=== PATIENT | female | born 1930 | race Caucasian/White ===

== ENCOUNTER 2018-01-15 21:09 | Emergency (ER) | payer OTHER ==
--- NOTE | 2018-01-15 21:25 | EDPHYS ---
Physician Documentation [facility] Name: Kelsie Campos Age: 87 yrs Sex: Female : 1930 Arrival Date: 01/15/2018 Time: 21:11 Bed 24 Private MD: Ilya Milian ED Physician Alberto Ruiz HPI: 01/15 21:22 This 87 yrs old Female presents to ER via Unassigned with complaints of Fall jr8 Injury, Arm Injury. 21:22 Onset: The symptoms/episode began/occurred acutely, today. Associated injuries: The jr8 patient sustained left arm, skin avulsion. Severity of symptoms: At their worst the symptoms were mild, in the emergency department the symptoms are unchanged. The patient has not experienced similar symptoms in the past. The patient has not recently seen a physician. Historical: - Allergies: : PENICILLINS; bb - PSHx: : part of colon removed; Hysterectomy; Appendectomy; bb - Immunization history:: Adult Immunizations unknown. - Social history:: Smoking status: Patient/guardian denies using tobacco, Patient/guardian denies using alcohol, street drugs. - Ebola Screening: : No symptoms or risks identified at this time. ROS: 21:22 Eyes: Negative for injury, pain, redness, and discharge, ENT: Negative for injury, jr8 pain, and discharge, Neck: Negative for injury, pain, and swelling, Cardiovascular: Negative for chest pain, palpitations, and edema, Respiratory: Negative for shortness of breath, cough, wheezing, and pleuritic chest pain, Abdomen/GI: Negative for abdominal pain, nausea, vomiting, diarrhea, and constipation, Back: Negative for injury and pain, MS/Extremity: Negative for injury and deformity, Neuro: Negative for headache, weakness, numbness, tingling, and seizure. 21:22 Skin: Positive for avulsion, of the left arm. Exam: 21:22 Head/Face: Normocephalic, atraumatic. Eyes: Pupils equal round and reactive to light, jr8 extra-ocular motions intact. Lids and lashes normal. Conjunctiva and sclera are non-icteric and not injected. Cornea within normal limits. Periorbital areas with no swelling, redness, or edema. ENT: Nares patent. No nasal discharge, no septal abnormalities noted. Tympanic membranes are normal and external auditory canals are clear. Oropharynx with no redness, swelling, or masses, exudates, or evidence of obstruction, uvula midline. Mucous membranes moist. Neck: Trachea midline, no thyromegaly or masses palpated, and no cervical lymphadenopathy. Supple, full range of motion without nuchal rigidity, or vertebral point tenderness. No Meningismus. Chest/axilla: Normal chest wall appearance and motion. Nontender with no deformity. No lesions are appreciated. Cardiovascular: Regular rate and rhythm with a normal S1 and S2. No gallops, murmurs, or rubs. Normal PMI, no JVD. No pulse deficits. Respiratory: Lungs have equal breath sounds bilaterally, clear to auscultation and percussion. No rales, rhonchi or wheezes noted. No increased work of breathing, no retractions or nasal flaring. Abdomen/GI: Soft, non-tender, with normal bowel sounds. No distension or tympany. No guarding or rebound. No evidence of tenderness throughout. Back: No spinal tenderness. No costovertebral tenderness. Full range of motion. MS/ Extremity: Pulses equal, no cyanosis. Neurovascular intact. Full, normal range of motion. No pain upon palpation Neuro: Awake and alert, GCS 15, oriented to person, place, time, and situation. Cranial nerves II-XII grossly intact. Motor strength 5/5 in all extremities. Sensory grossly intact. Cerebellar exam normal. Normal gait. 21:22 Skin: injury, avulsion(s), a small 3 cm(s), of the two avulsions note to dorsal aspect left arm. Vital Signs: 21:29 BP 116 / 68; Pulse 90; Resp 18 S; Temp 99.5(O); Pulse Ox 99% on R/A; Weight 72.57 kg bb (R); Height 5 ft. 3 in. (160.02 cm) (R); Pain 2/10; 21:45 BP 128 / 99; Pulse 88; Resp 20; Pulse Ox 99% ; kr2 21:29 Body Mass Index 28.34 (72.57 kg, 160.02 cm) bb MDM: 21:17 Patient medically screened. jr8 21:22 Data reviewed: vital signs, nurses notes, and as a result, I will discharge patient. jr8 Data interpreted: Pulse oximetry: on room air is 100 %. Interpretation: normal. Counseling: I had a detailed discussion with the patient and/or guardian regarding: the historical points, exam findings, and any diagnostic results supporting the discharge/admit diagnosis, the need for outpatient follow up, a family practitioner, to return to the emergency department if symptoms worsen or persist or if there are any questions or concerns that arise at home. 01/15 21:24 Order name: Wound Care; Complete Time: 21:41 jr8 01/15 21:24 Order name: Wound dressing; Complete Time: :41 jr8 Administered Medications: No medications were administered Disposition: 21:54 Co-signature as Attending Physician, Alberto Ruiz MD I agree with the assessment and kdr plan of care. Disposition: 01/15/18 21:24 Discharged to Home. Impression: Avulsion of skin to left forearm . - Condition is Stable. - Discharge Instructions: Skin Tear Care. - Medication Reconciliation Form, Thank You Letter, Antibiotic Education, Prescription Opioid Use form. - Follow up: Ilya Milian MD; When: 5 - 6 days; Reason: Wound Recheck, Recheck today's complaints, Continuance of care, Re-evaluation by your physician. - Problem is new. - Symptoms have improved. Signatures: Alberto Ruiz MD MD kdr Aleja Arteaga RN RN Tonio Melton PA PA jr8 Kathleen Painter RN RN kr2 Corrections: (The following items were deleted from the chart) 22:11 21:24 01/15/2018 21:24 Discharged to Home. Impression: Avulsion of skin to left forearm kr2 . Condition is Stable. Forms are Medication Reconciliation Form, Thank You Letter, Antibiotic Education, Prescription Opioid Use. Follow up: Ilya Milian; When: 5 - 6 days; Reason: Wound Recheck, Recheck today's complaints, Continuance of care, Re-evaluation by your physician. Problem is new. Symptoms have improved. jr8
--- NOTE | 2018-01-15 22:12 | ER ---
Nurse's Notes [facility] Name: Kelsie Campos Age: 87 yrs Sex: Female : 1930 Arrival Date: 01/15/2018 Time: 21:11 Bed 24 Private MD: Ilya Milian Diagnosis: Avulsion of skin to left forearm Presentation: 01/15 21:28 Presenting complaint: Patient states: she was trying to put her dog out in the rain and bb fell hitting her left forearm on the door and receiving 2 large skin tears denies LOC. Transition of care: patient was not received from another setting of care. Onset of symptoms was January 15, 2018. Risk Assessment: Do you want to hurt yourself or someone else? Patient reports no desire to harm self or others. Initial Sepsis Screen: Does the patient meet any 2 criteria? No. Patient's initial sepsis screen is negative. Does the patient have a suspected source of infection? No. Patient's initial sepsis screen is negative. Care prior to arrival: None. 21:28 Method Of Arrival: Ambulatory bb 21:28 Acuity: MONALISA 5 bb Historical: - Allergies: 21:29 PENICILLINS; bb - PSHx: 21:29 part of colon removed; Hysterectomy; Appendectomy; bb - Immunization history:: Adult Immunizations unknown. - Social history:: Smoking status: Patient/guardian denies using tobacco, Patient/guardian denies using alcohol, street drugs. - Ebola Screening: : No symptoms or risks identified at this time. Screenin:15 Abuse screen: Denies threats or abuse. Denies injuries from another. Nutritional kr2 screening: No deficits noted. Tuberculosis screening: No symptoms or risk factors identified. Fall Risk Fall in past 12 months (25 points). Gait- Impaired (20 pts.). Assessment: 21:15 General: Appears in no apparent distress. comfortable, well groomed, well developed, kr2 well nourished, Behavior is calm, cooperative, appropriate for age. Pain: Complains of pain in left arm Pain currently is 2 out of 10 on a pain scale. Quality of pain is described as burning, tender, Is continuous. Neuro: Level of Consciousness is awake, alert, obeys commands, Oriented to person, place, time, situation, Appropriate for age. Neuro: Intact. Cardiovascular: Capillary refill < 3 seconds in bilateral fingers Patient's skin is warm and dry. Respiratory: Airway is patent Respiratory effort is even, unlabored, Respiratory pattern is regular, symmetrical. GI: Abdomen is flat, non-distended. EENT: Nares are clear bilaterally Oral mucosa is moist. Derm: Skin is fragile, is thin, Skin is pink, warm \T\ dry. Bruising that is dark purple, on left arm. Musculoskeletal: Circulation, motion, and sensation intact. Range of motion: intact in all extremities. Injury Description: 2 skin tears to dorsal aspect of left forearm. Small amount of bleeding. 22:00 Reassessment: Wounds cleansed with Hibiclens and saline, dried with gauze. Approximated kr2 with steri strips as ordered, covered with non-adherent dressing and wrapped with gauze. Patient tolerated well. Vital Signs: 21:29 BP 116 / 68; Pulse 90; Resp 18 S; Temp 99.5(O); Pulse Ox 99% on R/A; Weight 72.57 kg bb (R); Height 5 ft. 3 in. (160.02 cm) (R); Pain 2/10; 21:45 BP 128 / 99; Pulse 88; Resp 20; Pulse Ox 99% ; kr2 21:29 Body Mass Index 28.34 (72.57 kg, 160.02 cm) bb ED Course: 21:11 Patient arrived in ED. es 21:11 Ilya Milian MD is Private Physician. es 21:15 Patient has correct armband on for positive identification. Bed in low position. Call kr2 light in reach. Side rails up X 1. Adult w/ patient. Pulse ox on. NIBP on. Door closed. Warm blanket given. Head of bed elevated. 21:16 Tonio Sun PA is PHCP. jr8 21:16 Alberto Ruiz MD is Attending Physician. jr8 21:24 Ilya Milian MD is Referral Physician. jr8 21:29 Triage completed. bb 21:29 Arm band placed on Patient placed in an exam room, on a stretcher, on pulse oximetry. bb Family accompanied patient. 21:41 Kathleen Painter, ROSEMARIE is Primary Nurse. kr2 22:10 No provider procedures requiring assistance completed. Patient did not have IV access kr2 during this emergency room visit. Administered Medications: No medications were administered Outcome: 21:24 Discharge ordered by . sonali 22:10 Discharged to home via wheelchair, with family. kr2 22:10 Condition: good 22:10 Discharge instructions given to patient, family, Instructed on discharge instructions, follow up and referral plans. wound care, Demonstrated understanding of instructions, follow-up care, wound care. 22:11 Patient left the ED. kr2 Signatures: Talia Obrien Brenda, RN RN Tonio Melton PA PA jr8 Reaves, Karey, RN RN kr2 Corrections: (The following items were deleted from the chart) 22:09 21:15 Pain: Denies pain. kr2 kr2
[2018-01-15 22:16] VITALS: TEMP 99.5; O2SAT 99
[2018-01-15 22:17] VITALS: BP 128/99
== END 2018-01-15 22:11 | disposition home or self-care (01) ==
LOC: ER 21:09
DX: S51.802A Unspecified open wound of left forearm, initial encounter (principal); W19.XXXA Unspecified fall, initial encounter; Y93.9 Activity, unspecified; Y92.9 Unspecified place or not applicable; Z88.0 Allergy status to penicillin
CPT/HCPCS: 99283